=== PATIENT | male | born 1970 | race Caucasian/White ===

== ENCOUNTER 2016-11-26 18:20 | Emergency (ER) | payer MEDICAID ==
[2016-11-26 18:30] VITALS: TEMP 98.4
--- NOTE | 2016-11-26 19:13 | C.PDOC ---
History Of Present Illness Pt is a 46 yo male with known hx gouty arthritis who now presents with c/o bilat ankle pain and swelling alo0ng with L great two pain.Pt has run out of his gout meds.Has appt with PMD in 2 days but felt he could not wait Chief Complaint (Nursing): Lower Extremity Problem/Injury History Per: Patient History/Exam Limitations: no limitations Onset/Duration Of Symptoms: Persistent (3 weeks ) Current Symptoms Are (Timing): Still Present Recent travel outside of the [place]: No Past Medical History Reviewed: Historical Data, Nursing Documentation, Vital Signs Vital Signs: Last Vital Signs Temp 98.4 F 11/26/16 19:50 Pulse 102 H 11/26/16 19:50 Resp 16 11/26/16 19:50 BP 131/82 11/26/16 19:50 Pulse Ox 99 11/26/16 19:50 - Medical History PMH: Cardia Arrhythmia Family History: States: Unknown Family Hx - Social History Hx Alcohol Use: No (former) Hx Substance Use: No - Immunization History Hx Tetanus Toxoid Vaccination: No Hx Influenza Vaccination: No Hx Pneumococcal Vaccination: No Review Of Systems Constitutional: Negative for: Fever, Chills Musculoskeletal: Positive for: Foot Pain (bilateral ankle swelling and pain ) Skin: Negative for: Rash Neurological: Negative for: Weakness, Numbness Physical Exam - Physical Exam Appears: Well, Non-toxic, No Acute Distress Skin: Warm, Dry Head: Atraumatic, Normacephalic Eye(s): bilateral: Normal Inspection, PERRL, EOMI Oral Mucosa: Moist Chest: Symmetrical, No Deformity Cardiovascular: Rhythm Regular, No Murmur, Other (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 S1 and S2 in normal limits. ) Respiratory: No Rales, No Rhonchi, No Wheezing, Other (clear to auscultation bilaterally ) Extremity: Normal ROM, No Tenderness, No Pedal Edema, No Calf Tenderness, Swelling (bilateral ankle swelling and right great toe swelling ) Neurological/Psych: Oriented x3 ED Course And Treatment O2 Sat by Pulse Oximetry: 100 (RA) Progress Note: EKG was ordered and patient was given prednisone. Disposition - Disposition Disposition: HOME/ ROUTINE Disposition Time: 19:10 Condition: FAIR Additional Instructions: see your PMD as scheduled in 2 days Prescriptions: Colchicine 0.6 mg PO BID #10 tablet MDD 3 Indomethacin [Indocin] 25 mg PO TID #15 cap Prednisone 50 mg PO DAILY #5 tablet Forms: [facility] ([place]), General Discharge Instructions Print Language: HUNGARIAN - Clinical Impression Clinical Impression: Exacerbation of gout - Scribe Statement The provider has reviewed the documentation as recorded by the Scribe Leidy Hein All medical record entries made by the Moniibe were at my direction and personally dictated by me. I have reviewed the chart and agree that the record accurately reflects my personal performance of the history, physical exam, medical decision making, and the department course for this patient. I have also personally directed, reviewed, and agree with the discharge instructions and disposition.
[2016-11-26 19:51] VITALS: BP 131/82; PULSE 102; RESP 16
[2016-11-26 19:58] VITALS: O2SAT 100
== END 2016-11-26 19:51 | disposition home or self-care (01) ==
LOC: C.ER 18:20
DX: M10.9 Gout, unspecified (principal)